=== PATIENT | male | born 1990 | race Caucasian/White ===

== ENCOUNTER 2024-10-16 15:19 | Emergency (ER) | payer OTHER, SELFPAY ==
[2024-10-16] VITALS (10 sets, daily range): BP systolic 109–125; BP diastolic 75–96; BMI 26.1
[2024-10-16] MEDS: NSS 1000 IV ×2 (16:37→17:44)
[2024-10-16 16:40] LABS: % Basophils 0.4 % (0-2); % Eosinophils 0.9 % (0-6); % Immature Granulocytes 0.1 % (0-0.5); % Lymphocytes 25.4 % (20.5-51.1); % Monocytes 6.9 % (1.7-9.3); % Neutrophils 66.3 % (42.2-75.2); Absolute Eosinophils 0.1 10^3/uL (0-0.7); Absolute Lymphocytes 1.8 10^3/uL (1.2-3.4); Absolute Monocytes 0.5 10^3/uL (0.1-0.6); Absolute Neutrophils 4.6 10^3/uL (1.4-6.5); Hematocrit 43.3 % (39.0-52.0); Hemoglobin 15.5 g/dL (13.0-18.0); Mean Corp Hgb Conc. 35.8 g/dL (33.0-37.0); Mean Corpuscular Hgb 30.2 pg (27.0-31.0); Mean Corpuscular Volume 84.4 fL (80.0-94.0); Nucleated Red Blood Cells % 0 % (-); Platelet Count 298 10^3/uL (130-400); Red Blood Cell Count 5.13 10^6/uL (4.70-6.10); Red Cell Dist. Width 11.9 % (11.5-14.5); White Blood Cell Count 6.9 10^3/uL (4.8-10.8)
[2024-10-16 16:47] LABS: Blood Urea Nitrogen 10 mg/dl (9-20); Calcium 9.4 mg/dl (8.4-10.2); Carbon Dioxide 29 mmol/L (22-30); Chloride 109 mmol/L (98-107); Estimated Creatinine Clearance > 125 ml/min; Glucose 82 mg/dl (70-99); Potassium 4.1 mmol/L (3.5-5.1); Sodium 139 mmol/L (135-145); eGFR > 60.00
--- NOTE | 2024-10-16 17:04 | ED.GENMED ---
History of Present Illness
General
Chief Complaint: Dizziness
Time Seen by Provider: 10/16/24 16:11
History of Present Illness
History of Present Illness:
34-year-old male with history of seizures on Klonopin presenting to the emergency department for confusion. Patient reports that he fell down a flight of stairs 2 days ago while in [place]. Reports that he had diffuse pain at that time, was
evaluated for perspective in [facility], had reportedly negative CT imaging. However, reports that he is feeling more confused. He feels like there is something wrong with his brain. Denies any new injury from the original fall. Denies
fever. Reports history of cervical fusion with chronic paresthesias to the right upper extremity. Denies weakness. Patient has been seen in the hospital in the past for substance abuse. Denies any recent substance abuse. Denies additional acute
medical complaints
Past History
Past History
ED Past Medical History: Seizures
ED Past Surgical History: None
Social History
Tobacco: Smoker
Alcohol: None
Drug: Cocaine, Narcotics and IVDA
Personal: Single
Living: with roommate
Employment: Not employed
Family History
Family History: Other
Phy Exam
Physical Exam
Physical Exam:
General: Well-appearing, no clinical signs of dehydration, nontoxic and in no acute distress
HEENT: protecting airway, pupils equal and reactive, extraocular movements intact.
Neck: appears supple
CV: Normal heart rate, regular rhythm
Resp: No accessory muscle use, no increased work of breathing, lungs clear to auscultation bilaterally
Abd: Soft and non-distended, no tenderness to palpation
Extremities: No deformities, no swelling. No focal tenderness to the spine.
Neuro: alert, no focal neurologic deficit. Awake, alert, oriented x 3, equal sensation and motor function.
: deferred
Rectal: deferred
Psych: Normal affect
Skin: Intact
Course
Orders/Labs/Results
Orders:
Orders
10/16/24 16:21
Basic Metabolic Panel Urgent
Complete Blood Count/With Diff Urgent
10/16/24 16:29
CT Cervical Spine W/o Iv Contr Urgent
Comment:
Reason For Exam: fall 2 days ago, pain, chronic cervical fusion
CT Head W/o Iv Contrast Urgent
Comment:
Reason For Exam: fall 2 days ago, altered
0.9% Sodium Chloride 1000 ml [Nss] 1,000 ml IV BOLUS
10/16/24 17:44
0.9% Sodium Chloride 1000 ml [Nss] 1,000 ml IV BOLUS
10/16/24 17:53
0.9% Sodium Chloride 1000 ml [Nss] 1,000 ml IV BOLUS
10/16/24 19:00
Urine Drug Abuse Screen Urgent
Date Specimen was Collected: 10/16/24
Time Specimen was Collected: 18:58
Urine Fentanyl [Fentanyl, Urine] Urgent
Abnormal Lab Results
10/16/24 10/16/24
16:21 19:00
Chloride 109 H mmol/L
(98-107)
Urine Opiates Screen Positive H
(Negative)
Ur Oxycodone Screen Positive H
(Negative)
Ur Amphetamines Screen Positive H
(Negative)
U Methamphetamines Scrn Positive H
(Negative)
U Marijuana (THC) Screen Positive H
(Negative)
10/16/24 16:21
10/16/24 16:21
Vital Signs
Initial and Last Documented VS:
Initial Vital Signs
Temp Pulse Resp BP Pulse Ox
98.3 F 93 22 124/85 100
10/16/24 15:29 10/16/24 15:29 10/16/24 15:29 10/16/24 15:29 10/16/24 15:29
Last Documented Vital Signs
Temp Pulse Resp BP Pulse Ox
98.3 F 75 19 109/76 98
10/16/24 15:29 10/16/24 19:45 10/16/24 19:45 10/16/24 19:30 10/16/24 19:45
MDM/Problems Addressed
MDM/Problems Addressed:
34-year-old male with prior history of seizure disorder presenting to the emergency department for concern of confusion after a fall 2 days ago. Vital signs are normal.
On exam, patient is resting comfortably, no acute distress. Patient awake, alert, oriented. Patient soft-spoken, however is communicating appropriately. No dysphagia, no dysarthria. Equal motor function bilaterally. Does report some slight
diminished sensation to the right upper extremity, however notes that this is chronic from his prior surgery. No physical signs of trauma. Patient does have track mcdaniel to bilateral upper extremities. On review of EMR, prior history of heroin
abuse and benzodiazepine abuse. Patient denies any recent drug abuse. He does have some dry mucous membranes. Suspect component of dehydration. Will repeat CT imaging of the head and obtain laboratory analysis
20:00 - CT imaging is unremarkable. Urine drug screen is positive for opiates and oxycodone, which patient has been taking. Patient also did admit to taking marijuana. However patient is positive for amphetamines and methamphetamines which could
be contributing to patient's symptoms. When patient was updated on his results, became upset and left the department. Did communicate with patient and girlfriend to follow-up with his doctor. Patient received 2 L of IV fluids. Vital signs
remained normal. Ultimately feel stable for discharge. Encouraged continued oral hydration, rest, nutrition.
*Critical Care Note
Total Time (30-74mins, 75-104mins- exclusive of procedures): Not Applicable
ED Attending Note
-
Portions of this chart may have been created with voice recognition software.� Occasional wrong word or��sound alike� substitutions may have occurred due to the inherent limitations of voice recognition software.
Discharge Plan
Departure
Prescriptions:
No Action
clonazepam 1 MG tablet
2.5 mg PO BID
Rx Instructions:
take
clonazepam 0.5 mg Tablet
0.5 mg PO DAILY
Rx Instructions:
in the afternoon
Referrals:
Lee Rider DO [Family Provider] -
Interventions
Interventions:
*Risk Screen - Suicide Last Done: 10/16/24 15:29
*General Assessment Last Done: 10/16/24 15:54
*Neglect/Abuse Screening Last Done: 10/16/24 15:54
*ED COVID-19 Vaccine History Last Done: 10/16/24 15:54
ED- Neurological Assessment Last Done: 10/16/24 15:54
ED- Cardiac Assessment Last Done: 10/16/24 16:10
Discharge Date and Time
Print Language: TAMAZIGHT
[2024-10-16 19:18] LABS: Amphetamines Positive (Negative); Barbiturates Negative (Negative); Benzodiazepines Negative (Negative); Buprenorphine Negative (Negative); Cocaine Negative (Negative); Marijuana Positive (Negative); Methadone Negative (Negative); Methamphetamines Positive (Negative); Opiates Positive (Negative); Phencyclidine Negative (Negative); Tricyclic Antidepressants Negative (Negative)
[2024-10-16 19:29] LABS: Fentanyl, Urine Negative (Negative)
--- NOTE | 2024-10-16 19:55 | EDRN ---
Dr. Ibarra had updated pt. and fiance on results and provided d/c instructions, as pt. to be discharged. This RN and assisting RN heard pt. become agitated w. his significant other, using profanity and pulled off his hall monitor. Pt. stating 'so
nothing is wrong on my scans, the healthcare system is so fucked!'. Pt. allowed RN to remove his IV, then walked out of ER w/ his significant other following. Pt. left prior to receiving physical discharge instructions;however, did confirm that
she informed pt. and fiance of d/c instructions verbally. Pt. seen walking out of ED w/ steady gait.
== END 2024-10-16 20:00 | disposition home or self-care (01) ==
LOC: EMR 15:19
PROVIDERS: EMERGENCY PHYSICIAN Student in an Organized Health Care Education/Training Program; FAMILY PHYSICIAN Internal Medicine
DX: R41.0 Disorientation, unspecified (principal); R20.2 Paresthesia of skin; W10.9XXA Fall (on) (from) unspecified stairs and steps, initial encounter; G40.909 Epilepsy, unspecified, not intractable, without status epilepticus; F12.90 Cannabis use, unspecified, uncomplicated; F15.90 Other stimulant use, unspecified, uncomplicated; F17.200 Nicotine dependence, unspecified, uncomplicated; M43.22 Fusion of spine, cervical region; Z88.8 Allergy status to other drugs, medicaments and biological substances
CPT/HCPCS: 99284; 96360; 96361; 70450; 72125; 80048; 80306; 80307; 85025